=== PATIENT | female | born 1965 | race Caucasian/White ===

== ENCOUNTER → 2018-09-25 | Outpatient (CLI) | payer BC ==
--- NOTE | 2018-09-28 11:51 | MM ---
Reason for exam: screening (asymptomatic). Last mammogram was performed 1 year and 2 months ago. History: Patient is postmenopausal and is nulliparous. Took hormonal contraceptives for 20 years. Physical Findings: A clinical breast exam by your physician is recommended on an annual basis and results should be correlated with mammographic findings. MG 3D Screening Mammo W/Cad Bilateral CC and MLO view(s) were taken. Prior study comparison: August 08, 2017, mammogram, performed at [facility]. June 14, 2016, mammogram, performed at [facility]. The breast tissue is heterogeneously dense. This may lower the sensitivity of mammography. There are benign appearing round calcifications bilaterally. There is no discrete abnormality. ASSESSMENT: Benign, BI-RAD 2 RECOMMENDATION: Routine screening mammogram of both breasts in 1 year.
== END | disposition home or self-care (01) ==
LOC: RADMAMWWP 10:05
PROVIDERS: ATTEND Nurse Practitioner Family
DX: Z12.31 Encounter for screening mammogram for malignant neoplasm of breast (principal)
CPT/HCPCS: 77063; 77067

== ENCOUNTER → 2020-03-07 | Outpatient (CLI) | payer BC ==
[2020-03-07 21:03] LABS: ALT 166 U/L (8-44); AST 104 U/L (13-35); Albumin/Globulin Ratio 1.39 (1.60-3.17); Alkaline Phosphatase 56 U/L (41-126); Bilirubin, Conjugated <0.20 mg/dL (0.20-0.40); Globulin 3.1 g/dL (1.6-3.3); Total Bilirubin 0.4 mg/dL (0.3-1.2); Total Protein 7.4 g/dL (6.2-8.2)
[2020-03-07 22:21] LABS: Hepatitis A Antibody IgM Non-Reactive (Non-Reactive); Hepatitis B Core IgM Non-Reactive (Non-Reactive); Hepatitis B Surface Antigen Non-Reactive (Non-Reactive); Hepatitis C IgG Antibody Non-Reactive (Non-Reactive)
== END | disposition home or self-care (01) ==
LOC: LABWHC1 12:02
PROVIDERS: ATTEND Nurse Practitioner
DX: R74.8 Abnormal levels of other serum enzymes (principal)
CPT/HCPCS: 36415; 80074; 80076

== ENCOUNTER 2021-05-09 06:55 | Day surgery (SDC) | payer BC ==
[2021-05-07 12:27] VITALS: BMI 49.1
[~2021-05-09 06:55] MED LIST: LIDOCAINE 1% (10MG/ML) FOR IV START INTRADERMA PRN
[2021-05-09 07:30] VITALS: RESP 16; TEMP 96.8
[2021-05-09] MEDS: LACTATED RINGERS 1,000 ML IV SCH ×2 (07:33→07:34)
--- NOTE | 2021-05-09 07:33 | P.GSHP ---
History of Present Illness H&P Date: 05/09/21 CHIEF COMPLAINT: Colon screen HISTORY OF PRESENT ILLNESS: The patient is a 55-year-old female who presents for colon screen. Lower endoscopy was offered for further evaluation and management. PAST MEDICAL HISTORY: Please see list. PAST SURGICAL HISTORY: Please see list. MEDICATIONS: Please see list. ALLERGIES: Please see list. SOCIAL HISTORY: No illicit drug use FAMILY HISTORY: No reports of Crohn disease or ulcerative colitis. REVIEW OF ORGAN SYSTEMS: CONSTITUTIONAL: No reports of fevers or chills. PHYSICAL EXAM: VITAL SIGNS: Stable GENERAL: Well-developed pleasant in no acute distress. HEENT: No scleral icterus. Extraocular movements grossly intact. Moist buccal mucosa. NECK: Supple without lymphadenopathy. CHEST: Unlabored respirations. Equal bilateral excursions. CARDIOVASCULAR: Regular rate and rhythm. Distal 2+ pulses. ABDOMEN: Soft, nontender, nondistended. MUSCULOSKELETAL: No clubbing, cyanosis, or edema. ASSESSMENT: 1. Colon screen. PLAN: 1. Recommend proceeding with a lower endoscopy Past Medical History Past Medical History: Asthma, Diabetes Mellitus, Hypertension, Sleep Apnea/CPAP/BIPAP Additional Past Medical History / Comment(s): irregular heartbeat @times, uses CPAP, hx. colon polyp, had abnormal polyp in past but no cancer, elevated liver enzymes, fatty liver, kidney stones, lung nodules-dr. melchor History of Any Multi-Drug Resistant Organisms: None Reported Additional Past Surgical History / Comment(s): colonoscopies Past Anesthesia/Blood Transfusion Reactions: No Reported Reaction Smoking Status: Never smoker Medications and Allergies Home Medications Medication Instructions Recorded Confirmed Type Albuterol Inhaler [Ventolin Hfa 2 puff INHALATION RT-QID PRN 05/07/21 05/09/21 History Inhaler] Ascorbic Acid [Vitamin C] 500 mg PO DAILY 05/07/21 05/09/21 History Aspirin 325 mg PO Q30D 05/07/21 05/09/21 History Cholecalciferol [Vitamin D3 (25 50 mcg PO DAILY 05/07/21 05/09/21 History Mcg = 1000 Iu)] Dapagliflozin Propanediol [Farxiga] 10 mg PO DAILY 05/07/21 05/09/21 History Fluticasone Nasal [place] [Flonase 2 spray EA NOSTRIL DAILY PRN 05/07/21 05/09/21 History Nasal [place]] Loratadine [Claritin] 10 mg PO DAILY 05/07/21 05/09/21 History Losartan-Hctz 50-12.5 mg [Hyzaar 1 tab PO DAILY 05/07/21 05/09/21 History 50-12.5] Olopatadine HCl [Pataday] 1 drop BOTH EYES DIRECTED PRN 05/07/21 05/09/21 History Zinc 50 mg PO DAILY 05/07/21 05/09/21 History metFORMIN HCL [Glucophage] 1,000 mg PO BID 05/07/21 05/09/21 History Allergies Allergy/AdvReac Type Severity Reaction Status Date / Time amoxicillin Allergy lip Verified 05/09/21 07:12 swelling Penicillins Allergy lip Verified 05/09/21 07:12 swelling sulfamethoxazole Allergy Rash/Hives Verified 05/09/21 07:12 [From Bactrim] tramadol [From Ultram] Allergy passed Verified 05/09/21 07:12 out, dyspnea trimethoprim [From Bactrim] Allergy Rash/Hives Verified 05/09/21 07:12 Surgical - Exam Vital Signs Temp Pulse Resp BP Pulse Ox 96.8 F L 59 L 16 126/63 97 05/09/21 07:22 05/09/21 07:22 05/09/21 07:22 05/09/21 07:22 05/09/21 07:22
[2021-05-09 07:39] LABS: Glucose,Whole Blood 116 mg/dL (75-99)
[2021-05-09] MEDS ORDERED: PROPOFOL 10 MG/ML 20 ML VIAL IV ONE (07:40)
--- NOTE | 2021-05-09 08:00 | P.PCN ---
Date of Procedure: 05/09/21 Description of Procedure: PREOPERATIVE DIAGNOSIS: Personal history of colon polyps Family history malignant colon polyps Colonoscopy screening POSTOPERATIVE DIAGNOSIS: Personal history of colon polyps Family history malignant colon polyps Colonoscopy screening Tubular adenoma ascending colon Tubular adenoma transverse colon Tubular adenoma splenic flexure colon Tubular adenoma descending colon Sigmoid diverticulosis OPERATION: Colonoscopy to the ileocecal valve and appendiceal orifice, cecum Colonoscopy with hot snare polypectomy Colonoscopy with cold forceps biopsy SURGEON: Deyanira Kurtz MD. ANESTHESIA: MAC. INDICATIONS: The patient is an 55-year-old female who presents family history of malignant colon polyps and personal history of colon polyps. Last colonoscopy 5 years. Benefits and risks were described and informed consent was obtained. DESCRIPTION OF PROCEDURE: The patient had undergone Sutab prep. The patient had been brought into the operating room and laid in the left lateral decubitus position. After adequate intravenous sedation, the rectum was examined with 2% lidocaine jelly. The prostate was unremarkable. No external hemorrhoids were encountered. The rectal tone was within normal limits. No lesions were palpated in the rectal vault. An Olympus colonoscope was advanced until the cecum, ileocecal valve and appendiceal orifice were clearly viewed. The prep was excellent. Sigmoid diverticulosis was encountered. Colonic polyps were found and removed. No evidence of focal colitis was found. Retroflexion of the scope demonstrated no prolapsed internal hemorrhoids without active bleeding or inflammation. The colon was desufflated. The patient had tolerated the procedure well. Withdrawal time was over 6 minutes. FINDINGS: Aronchick preparation quality scale 1 (1-5) No prolapsed internal hemorrhoids, No external hemorrhoids No arteriovenous malformations. Sigmoid diverticulosis Removal of 4 polyps: - Snare polypectomy ascending colon, 6 mm flat tubulovillous adenoma - Snare polypectomy mid transverse colon, 5 mm flat villous adenoma polyp. - Cold forceps biopsy at splenic flexure, 4 mm polyp. - Cold forceps biopsy at 40 cm from the anal verge, 5 mm polyp, descending colon No focal colitis. RECOMMENDATIONS: Repeat colonoscopy 3 years, 2023 Plan - Discharge Summary Discharge Rx Participant: No New Discharge Prescriptions: Continue metFORMIN HCL [Glucophage] 1,000 mg PO BID Aspirin 325 mg PO Q30D Cholecalciferol [Vitamin D3 (25 Mcg = 1000 Iu)] 50 mcg PO DAILY Losartan-Hctz 50-12.5 mg [Hyzaar 50-12.5] 1 tab PO DAILY Albuterol Inhaler [Ventolin Hfa Inhaler] 2 puff INHALATION RT-QID PRN PRN Reason: Shortness Of Breath Zinc 50 mg PO DAILY Loratadine [Claritin] 10 mg PO DAILY Ascorbic Acid [Vitamin C] 500 mg PO DAILY Fluticasone Nasal [place] [Flonase Nasal [place]] 2 spray EA NOSTRIL DAILY PRN PRN Reason: allergies Olopatadine HCl [Pataday] 1 drop BOTH EYES DIRECTED PRN PRN Reason: allergies Dapagliflozin Propanediol [Farxiga] 10 mg PO DAILY Discharge Medication List Albuterol Inhaler [Ventolin Hfa Inhaler] 2 puff INHALATION RT-QID PRN 05/07/21 [History] Ascorbic Acid [Vitamin C] 500 mg PO DAILY 05/07/21 [History] Aspirin 325 mg PO Q30D 05/07/21 [History] Cholecalciferol [Vitamin D3 (25 Mcg = 1000 Iu)] 50 mcg PO DAILY 05/07/21 [History] Dapagliflozin Propanediol [Farxiga] 10 mg PO DAILY 05/07/21 [History] Fluticasone Nasal [place] [Flonase Nasal [place]] 2 spray EA NOSTRIL DAILY PRN 05/07/21 [History] Loratadine [Claritin] 10 mg PO DAILY 05/07/21 [History] Losartan-Hctz 50-12.5 mg [Hyzaar 50-12.5] 1 tab PO DAILY 05/07/21 [History] Olopatadine HCl [Pataday] 1 drop BOTH EYES DIRECTED PRN 05/07/21 [History] Zinc 50 mg PO DAILY 05/07/21 [History] metFORMIN HCL [Glucophage] 1,000 mg PO BID 05/07/21 [History] Follow up Appointment(s)/Referral(s): Deyanira Kurtz MD [STAFF PHYSICIAN] - As Needed Patient Instructions/Handouts: Diverticulosis Diet (GEN), Diverticulosis (DC), Colorectal Polyps (GEN) Activity/Diet/Wound Care/Special Instructions: Repeat colonoscopy 3 years, 2023 Discharge Disposition: HOME SELF-CARE
[2021-05-09 08:15] VITALS: BP 115/72; PULSE 87
== END 2021-05-09 09:00 | disposition home or self-care (01) ==
LOC: ORWHC2ENDO 06:55
PROVIDERS: ATTEND Surgery Plastic and Reconstructive Surgery
DX: Z12.11 Encounter for screening for malignant neoplasm of colon (principal); D12.2 Benign neoplasm of ascending colon; D12.3 Benign neoplasm of transverse colon; K57.30 Diverticulosis of large intestine without perforation or abscess without bleeding; J45.909 Unspecified asthma, uncomplicated; E11.9 Type 2 diabetes mellitus without complications; G47.00 Insomnia, unspecified; I10 Essential (primary) hypertension; Z80.0 Family history of malignant neoplasm of digestive organs; Z86.010 Personal history of colon polyps
CPT/HCPCS: 45385; J2704; 88305

== ENCOUNTER 2024-04-21 06:57 | Day surgery (SDC) | payer BC, OTHER ==
[2024-04-21] MEDS: LACTATED RINGERS 1,000 ML IV ONE (07:25)
[2024-04-21 07:30] VITALS: TEMP 97
[2024-04-21] MEDS: IV FLUID CONTINUATION 1,000 ML IV ONE (07:33)
[2024-04-21] MEDS: LACTATED RINGERS 1,000 ML IV SCH (07:34)
[2024-04-21] MEDS: LIDOCAINE 1% (10MG/ML) FOR IV START INTRADERMA STA (07:35)
--- NOTE | 2024-04-21 07:37 | P.GSHP ---
History of Present Illness H&P Date: 04/21/24 CHIEF COMPLAINT: GERD and colon screen HISTORY OF PRESENT ILLNESS: The patient is a 58-year-old female who presents with gastroesophageal reflux disease and need for colon screen. Upper and lower endoscopy were offered for further evaluation and management. PAST MEDICAL HISTORY: Please see list. PAST SURGICAL HISTORY: Please see list. MEDICATIONS: Please see list. ALLERGIES: Please see list. SOCIAL HISTORY: No illicit drug use FAMILY HISTORY: No reports of Crohn disease or ulcerative colitis. REVIEW OF ORGAN SYSTEMS: CONSTITUTIONAL: No reports of fevers or chills. GI: Denies any blood in stools or constipation. PHYSICAL EXAM: VITAL SIGNS: Stable GENERAL: Well-developed pleasant in no acute distress. HEENT: No scleral icterus. Extraocular movements grossly intact. Moist buccal mucosa. NECK: Supple without lymphadenopathy. CHEST: Unlabored respirations. Equal bilateral excursions. CARDIOVASCULAR: Regular rate and rhythm. Distal 2+ pulses. ABDOMEN: Soft, nondistended. MUSCULOSKELETAL: No clubbing, cyanosis, or edema. ASSESSMENT: 1. Gastroesophageal reflux disease 2. Colon screen. PLAN: 1. Recommend proceeding with an upper and lower endoscopy Past Medical History Past Medical History: Atrial Fibrillation, Asthma, Diabetes Mellitus, GERD/Reflux, Hypertension, Sleep Apnea/CPAP/BIPAP Additional Past Medical History / Comment(s): irregular heartbeat @times, uses CPAP, hx. colon polyp, had abnormal polyp in past but no cancer, elevated liver enzymes, fatty liver, kidney stones, lung nodules-dr. melchor. afib with rvr, diverticultis, kidney stones History of Any Multi-Drug Resistant Organisms: None Reported Past Surgical History: Heart Catheterization Additional Past Surgical History / Comment(s): lumps in shoulders from im injections. Past Anesthesia/Blood Transfusion Reactions: No Reported Reaction Additional Past Anesthesia/Blood Transfusion Reaction / Comment(s): fentanyl doesn't work as expected Smoking Status: Never smoker - Past Family History Father Family Medical History: Cancer Additional Family Medical History / Comment(s): prostate Sister(s) Family Medical History: Cancer Additional Family Medical History / Comment(s): female hx Medications and Allergies Home Medications Medication Instructions Recorded Confirmed Type Albuterol Inhaler [Ventolin Hfa 2 puff INHALATION RT-QID PRN 05/07/21 04/19/24 History Inhaler] Ascorbic Acid [Vitamin C] 500 mg PO DAILY 05/07/21 04/19/24 History Cholecalciferol [Vitamin D3 (25 50 mcg PO DAILY 05/07/21 04/19/24 History Mcg = 1000 Iu)] Fluticasone Nasal [place] [Flonase 2 spray EA NOSTRIL DAILY PRN 05/07/21 04/19/24 History Nasal [place]] Loratadine [Claritin] 10 mg PO DAILY 05/07/21 04/19/24 History Losartan-Hctz 50-12.5 mg [Hyzaar 1 tab PO DAILY 05/07/21 04/19/24 History 50-12.5] Olopatadine HCl [Pataday] 1 drop BOTH EYES DIRECTED PRN 05/07/21 04/19/24 History Zinc 50 mg PO DAILY 05/07/21 04/19/24 History metFORMIN HCL [Glucophage] 1,000 mg PO BID 05/07/21 04/19/24 History Apixaban [Eliquis] 5 mg PO BID 04/19/24 04/19/24 History Tirzepatide [Mounjaro] 10 mg SQ MO 04/19/24 04/19/24 History dilTIAZem HCL [Cartia Xt] 120 mg PO DAILY 04/19/24 04/19/24 History Allergies Allergy/AdvReac Type Severity Reaction Status Date / Time amoxicillin Allergy lip Verified 04/21/24 07:23 swelling Penicillins Allergy lip Verified 04/21/24 07:23 swelling sulfamethoxazole Allergy Rash/Hives Verified 04/21/24 07:23 [From Bactrim] tramadol [From Ultram] Allergy passed Verified 04/21/24 07:23 out, dyspnea trimethoprim [From Bactrim] Allergy Rash/Hives Verified 04/21/24 07:23 fentanyl AdvReac Unknown Verified 04/21/24 07:23 Surgical - Exam Vital Signs Temp Pulse Resp BP Pulse Ox 97.0 F L 68 16 117/63 98 04/21/24 07:27 04/21/24 07:27 04/21/24 07:27 04/21/24 07:27 04/21/24 07:27
[2024-04-21] MEDS: ONDANSETRON 4 MG/2 ML VIAL IVP STA (07:44)
[2024-04-21] MEDS: DEXAMETHASONE SOD PHOSPHATE 4 MG/ML 1 ML VIAL IVP STA (07:45)
[2024-04-21] MEDS ORDERED: LIDOCAINE 1% INJ 10MG/ML (20 ML MDV) ONE (07:49)
[2024-04-21] MEDS ORDERED: PROPOFOL 10 MG/ML 20 ML VIAL IV ONE (07:49)
[2024-04-21 07:58] LABS: Glucose,Whole Blood 94 mg/dL (70-110)
[2024-04-21 08:52] VITALS: BP 105/73; PULSE 61; RESP 16
--- NOTE | 2024-04-21 08:59 | P.PCN ---
Date of Procedure: 04/21/24 Description of Procedure: PREOPERATIVE DIAGNOSIS: Personal history of colon polyps Colonoscopy screening. POSTOPERATIVE DIAGNOSIS: Colonoscopy screening. Diverticulosis, scattered. OPERATION: Colonoscopy to the cecum, ileocecal valve and appendiceal orifice. SURGEON: Deyanira Kurtz MD. ANESTHESIA: MAC. INDICATIONS: The patient is a 58-year-old female who presents for colonoscopy screening. Last colonoscopy 5 years ago. Benefits and risks were described and informed consent was obtained. DESCRIPTION OF PROCEDURE: The patient had undergone Sutab prep. The patient had been brought into the operating room and laid in the left lateral decubitus position. After adequate intravenous sedation, the rectum was examined with 2% lidocaine jelly. No external hemorrhoids were encountered. The rectal tone was within normal limits. No lesions were palpated in the rectal vault. An Olympus colonoscope was advanced until the cecum, ileocecal valve and appendiceal orifice were clearly viewed. The prep was good. Scattered diverticulosis was encountered. No colonic polyps were found. No evidence of focal colitis was found. Retroflexion of the scope demonstrated grade 1 internal hemorrhoids without active bleeding or inflammation. The colon was desufflated. The patient had tolerated the proced ure well. Withdrawal time was over 6 minutes. FINDINGS: Aronchick preparation quality scale 1+ (1-5) Internal hemorrhoids, grade 1 No external prolapsed hemorrhoids. No arteriovenous malformations. No adenomatous polyps. No focal colitis. Sigmoid diverticulosis RECOMMENDATIONS: Lower endoscopy in 5 years, 2028 Plan - Discharge Summary Discharge Rx Participant: No New Discharge Prescriptions: Continue metFORMIN HCL [Glucophage] 1,000 mg PO BID Cholecalciferol [Vitamin D3 (25 Mcg = 1000 Iu)] 50 mcg PO DAILY Losartan-Hctz 50-12.5 mg [Hyzaar 50-12.5] 1 tab PO DAILY Albuterol Inhaler [Ventolin Hfa Inhaler] 2 puff INHALATION RT-QID PRN PRN Reason: Shortness Of Breath Zinc 50 mg PO DAILY Loratadine [Claritin] 10 mg PO DAILY dilTIAZem HCL [Cartia Xt] 120 mg PO DAILY Tirzepatide [Mounjaro] 10 mg SQ MO Ascorbic Acid [Vitamin C] 500 mg PO DAILY Fluticasone Nasal [place] [Flonase Nasal [place]] 2 spray EA NOSTRIL DAILY PRN PRN Reason: allergies Olopatadine HCl [Pataday] 1 drop BOTH EYES DIRECTED PRN PRN Reason: allergies Apixaban [Eliquis] 5 mg PO BID Discharge Medication List Albuterol Inhaler [Ventolin Hfa Inhaler] 2 puff INHALATION RT-QID PRN 05/07/21 [History] Ascorbic Acid [Vitamin C] 500 mg PO DAILY 05/07/21 [History] Cholecalciferol [Vitamin D3 (25 Mcg = 1000 Iu)] 50 mcg PO DAILY 05/07/21 [History] Fluticasone Nasal [place] [Flonase Nasal [place]] 2 spray EA NOSTRIL DAILY PRN 05/07/21 [History] Loratadine [Claritin] 10 mg PO DAILY 05/07/21 [History] Losartan-Hctz 50-12.5 mg [Hyzaar 50-12.5] 1 tab PO DAILY 05/07/21 [History] Olopatadine HCl [Pataday] 1 drop BOTH EYES DIRECTED PRN 05/07/21 [History] Zinc 50 mg PO DAILY 05/07/21 [History] metFORMIN HCL [Glucophage] 1,000 mg PO BID 05/07/21 [History] Apixaban [Eliquis] 5 mg PO BID 04/19/24 [History] Tirzepatide [Mounjaro] 10 mg SQ MO 04/19/24 [History] dilTIAZem HCL [Cartia Xt] 120 mg PO DAILY 04/19/24 [History] Follow up [facility]ment(s[facility] [place] [facility] - [facility] Patient Instructions/Handouts: Diverticulosis (DC) Activity/Diet/Wound Care/Special Instructions: Repeat colonoscopy 5 years, 2028 Discharge Disposition: HOME SELF-CARE
--- NOTE | 2024-04-21 09:02 | P.PCN ---
Date of Procedure: 04/21/24 Description of Procedure: PREOPERATIVE DIAGNOSIS: Gastroesophageal reflux disease. Morbid obesity. Dysphagia Gastric ulcers POSTOPERATIVE DIAGNOSIS: Gastroesophageal reflux disease. Morbid obesity. Gastritis. OPERATION: Esophagogastroduodenoscopy with biopsies along esophagus, antrum and duodenum SURGEON: Deyanira Kurtz MD ANESTHESIA: MAC. INDICATIONS: The patient is a 58-year-old female who presents with dysphagia and reflux disease. Benefits and risks of the procedure were described. Informed consent was obtained. DESCRIPTION: The patient was brought into the endoscopy suite and laid in the left lateral decubitus position. An Olympus gastroscope was passed along the posterior oropharynx down to the distal esophagus where the squamocolumnar junction was encountered at 40 cm from the incisors. The stomach was entered and no bile reflux was found. Additional findings are listed below. Biopsies with cold forceps were obtained of the antrum. The first through third portion of the duodenum was examined. Retroflexion of the scope confirmed Hill grade 1 lower esophageal valve. The squamocolumnar junction demonstrated LA grade A erosive esophagitis. The stomach was desufflated. The patient tolerated the procedure well. FINDINGS: Squamocolumnar junction 36 cm from the incisors. Diaphragmatic hiatus at 36 cm. [place] grade 1 lower esophageal valve. LA grade A erosive esophagitis. Biopsies obtained. Biopsies obtained of the duodenum. Chronic gastritis with biopsies obtained. RECOMMENDATIONS: Upper endoscopy as needed.
== END 2024-04-21 09:55 | disposition home or self-care (01) ==
LOC: ORWHC2ENDO 06:57
PROVIDERS: ATTEND Surgery Plastic and Reconstructive Surgery
DX: Z12.11 Encounter for screening for malignant neoplasm of colon (principal); K29.50 Unspecified chronic gastritis without bleeding; K57.30 Diverticulosis of large intestine without perforation or abscess without bleeding; K21.9 Gastro-esophageal reflux disease without esophagitis; K25.9 Gastric ulcer, unspecified as acute or chronic, without hemorrhage or perforation; I48.91 Unspecified atrial fibrillation; J45.909 Unspecified asthma, uncomplicated; I25.2 Old myocardial infarction; E11.9 Type 2 diabetes mellitus without complications; I10 Essential (primary) hypertension; G47.33 Obstructive sleep apnea (adult) (pediatric); E66.01 Morbid (severe) obesity due to excess calories; Z68.42 Body mass index [BMI] 45.0-49.9, adult; Z86.0100 Personal history of colon polyps, unspecified; Z87.442 Personal history of urinary calculi; Z88.0 Allergy status to penicillin; Z88.2 Allergy status to sulfonamides; Z88.1 Allergy status to other antibiotic agents; Z88.5 Allergy status to narcotic agent; Z79.899 Other long term (current) drug therapy; Z79.01 Long term (current) use of anticoagulants; Z79.84 Long term (current) use of oral hypoglycemic drugs; Z79.82 Long term (current) use of aspirin
CPT/HCPCS: 45378; 43239; J1100; J2405; J2003; J2704; 88305